=== PATIENT | female | born 1975 | race Caucasian/White ===

== ENCOUNTER 2018-01-03 20:52 | Outpatient (CLI) | payer BC, OTHER | END 2018-01-04 06:04 | disposition home or self-care (01) | LOC: SLEEP 20:52 | PROVIDERS: ATTEND Otolaryngology Otolaryngology/Facial Plastic Surgery | DX: G47.10 Hypersomnia, unspecified (principal); R06.83 Snoring | CPT/HCPCS: 95811 ==